=== PATIENT | male | born 1960 | race Caucasian/White ===

== ENCOUNTER 2018-01-07 19:42 | Emergency (ER) | payer OTHER ==
[2018-01-07] MEDS: ACETAMINOPHEN 325 MG TAB PO (21:39)
== END 2018-01-07 23:02 | disposition home or self-care (01) ==
LOC: FTE 19:42
DX: J06.9 Acute upper respiratory infection, unspecified (principal); I10 Essential (primary) hypertension
CPT/HCPCS: 71045; 87400; 87880; 99284-25

== ENCOUNTER 2018-03-30 11:08 | Observation (INO) | payer OTHER ==
[2018-03-30] MEDS: ASPIRIN 325 MG TAB PO (12:18)
[2018-03-30 12:23] LABS: ADD MAN DIFF? NO
[2018-03-30 12:26] LABS: WHITE BLOOD COUNT 8.6 10^3/ul (4.8-10.8)
[2018-03-30 12:26] LABS: BASOPHILS % 0.3 % (0.0-2.0); EOSINOPHILS # 0.2 10^3/ul (0.0-0.5); EOSINOPHILS % 2.7 % (0.0-7.0); HEMATOCRIT 41.2 % (42.0-52.0); HEMOGLOBIN 13.5 g/dl (14.0-18.0); LYMPHOCYTES # 1.6 10^3/ul (0.8-2.9); LYMPHOCYTES % 18.7 % (15.0-51.0); MEAN CORPUSCULAR HEMOGLOBIN 28.2 pg (29.0-33.0); MEAN CORPUSCULAR HGB CONC 32.8 g/dl (32.0-37.0); MEAN CORPUSCULAR VOLUME 86.2 fl (82.0-101.0); MEAN PLATELET VOLUME 11.2 fl (7.4-10.4); MONOCYTE # 0.6 10^3/ul (0.3-0.9); MONOCYTES % 6.5 % (0.0-11.0); NEUTROPHIL # 6.1 10^3/ul (1.6-7.5); NEUTROPHILS % 71.5 % (39.0-77.0); PLATELET COUNT 209 10^3/UL (140-415); RED BLOOD COUNT 4.78 10^6/ul (4.70-6.10); RED CELL DISTRIBUTION WIDTH 13.1 % (11.5-14.5)
[2018-03-30 12:48] LABS: ALANINE AMINOTRANSFERASE 61 IU/L (13-69); ALBUMIN 3.8 g/dl (3.3-4.9); ALBUMIN/GLOBULIN RATIO 1.26; ALKALINE PHOSPHATASE 67 IU/L (42-121); ANION GAP 11 (8-16); ASPARTATE AMINO TRANSFERASE 25 IU/L (15-46); BILIRUBIN,INDIRECT 0.3 mg/dl (0-1.1); BILIRUBIN,TOTAL 0.3 mg/dl (0.2-1.3); BLOOD UREA NITROGEN 21 mg/dl (7-20); CALCIUM 9.4 mg/dl (8.4-10.2); CARBON DIOXIDE 29 mmol/L (21-31); CHLORIDE 106 mmol/L (97-110); CREATININE 0.86 mg/dl (0.61-1.24); GLUCOSE 95 mg/dl (70-220); POTASSIUM 4.6 mmol/L (3.5-5.1); SODIUM 141 mmol/L (135-144); TOTAL PROTEIN 6.8 g/dl (6.1-8.1)
[2018-03-30 12:52] LABS: PROTIME 22.2 Sec (11.9-14.9); PT RATIO 1.7
[2018-03-30 12:53] LABS: PARTIAL THROMBOPLASTIN TIME 29.3 Sec (25.0-35.0)
[2018-03-30 13:00] LABS: B-TYPE NATRIURETIC PEPTIDE 125 PG/ML (0-125); TROPONIN-I < 0.012 ng/ml (0.000-0.120)
[2018-03-30] MEDS ORDERED: LORAZEPAM 0.5 MG TAB PO (15:30)
[2018-03-30] MEDS ORDERED: ONDANSETRON 4 MG INJ IV (15:30)
[2018-03-30] MEDS ORDERED: NACL 0.9% 3 ML SYG IV (15:30)
[2018-03-30] MEDS ORDERED: DOCUSATE SODIUM 100 MG CAP PO (15:30)
[2018-03-30] MEDS ORDERED: BISACODYL (EC) 5 MG TAB PO (15:30)
[2018-03-30] MEDS ORDERED: ACETAMINOPHEN 325 MG TAB PO (15:30)
[2018-03-30] MEDS ORDERED: MAGNESIUM HYDROXIDE 30ML CUP PO (15:30)
[2018-03-30 19:17] LABS: CREATINE KINASE 39 IU/L (23-200)
[2018-03-30 19:26] LABS: CK INDEX 0.6
[2018-03-30 19:41] LABS: CK-MB 0.25 ng/ml (0.0-2.4); TROPONIN-I < 0.012 ng/ml (0.000-0.120)
[2018-03-30] MEDS: METHOCARBAMOL 500 MG TAB PO (20:01)
[2018-03-30] MEDS: FISH OIL 1,000 MG CAP PO (20:01)
[2018-03-30] MEDS: ATORVASTATIN 40 MG TAB PO (20:01)
[2018-03-30] MEDS: HYDROCODONE/APAP (5/325) TAB PO (22:00)
[2018-03-31 00:19] LABS: CREATINE KINASE 37 IU/L (23-200)
[2018-03-31 00:32] LABS: CK INDEX 0.6
[2018-03-31 00:34] LABS: CK-MB 0.23 ng/ml (0.0-2.4); TROPONIN-I < 0.012 ng/ml (0.000-0.120)
[2018-03-31] MEDS: PANTOPRAZOLE (EC) 40 MG TAB PO (05:03)
[2018-03-31] MEDS: HYDROCODONE/APAP (5/325) TAB PO (05:03)
[2018-03-31] MEDS: LEVOTHYROXINE 100 MCG TAB PO (05:03)
[2018-03-31 05:39] LABS: ADD MAN DIFF? NO; BASOPHILS % 0.5 % (0.0-2.0); EOSINOPHILS # 0.3 10^3/ul (0.0-0.5); EOSINOPHILS % 2.9 % (0.0-7.0); HEMATOCRIT 41.1 % (42.0-52.0); HEMOGLOBIN 13.6 g/dl (14.0-18.0); LYMPHOCYTES # 1.7 10^3/ul (0.8-2.9); LYMPHOCYTES % 19.6 % (15.0-51.0); MEAN CORPUSCULAR HEMOGLOBIN 28.3 pg (29.0-33.0); MEAN CORPUSCULAR HGB CONC 33.1 g/dl (32.0-37.0); MEAN CORPUSCULAR VOLUME 85.4 fl (82.0-101.0); MEAN PLATELET VOLUME 11.5 fl (7.4-10.4); MONOCYTE # 0.6 10^3/ul (0.3-0.9); MONOCYTES % 7.2 % (0.0-11.0); NEUTROPHIL # 6.1 10^3/ul (1.6-7.5); NEUTROPHILS % 69.3 % (39.0-77.0); PLATELET COUNT 193 10^3/UL (140-415); RED BLOOD COUNT 4.81 10^6/ul (4.70-6.10); RED CELL DISTRIBUTION WIDTH 13.2 % (11.5-14.5)
[2018-03-31 05:39] LABS: WHITE BLOOD COUNT 8.7 10^3/ul (4.8-10.8)
[2018-03-31 06:09] LABS: ALANINE AMINOTRANSFERASE 51 IU/L (13-69); ALBUMIN 3.8 g/dl (3.3-4.9); ALBUMIN/GLOBULIN RATIO 1.11; ALKALINE PHOSPHATASE 71 IU/L (42-121); ANION GAP 14 (8-16); ASPARTATE AMINO TRANSFERASE 23 IU/L (15-46); BILIRUBIN,INDIRECT 0.7 mg/dl (0-1.1); BILIRUBIN,TOTAL 0.7 mg/dl (0.2-1.3); BLOOD UREA NITROGEN 20 mg/dl (7-20); CARBON DIOXIDE 29 mmol/L (21-31); CHLORIDE 105 mmol/L (97-110); CREATININE 0.93 mg/dl (0.61-1.24); GLUCOSE 97 mg/dl (70-220); MAGNESIUM 1.8 mg/dl (1.7-2.5); POTASSIUM 4.8 mmol/L (3.5-5.1); SODIUM 143 mmol/L (135-144); TOTAL PROTEIN 7.2 g/dl (6.1-8.1)
[2018-03-31] MEDS: FISH OIL 1,000 MG CAP PO (09:19)
[2018-03-31] MEDS: LISINOPRIL 5 MG TAB PO (09:19)
[2018-03-31] MEDS: METHOCARBAMOL 500 MG TAB PO ×2 (09:19→13:23)
[2018-03-31] MEDS: GABAPENTIN 300 MG CAP PO (09:19)
[2018-03-31] MEDS: ATENOLOL 50 MG TAB PO (09:20)
[2018-03-31] MEDS: ISOSORBIDE MONONITRATE(SR)30 MG TAB PO (09:20)
[2018-03-31] MEDS: CLOPIDOGREL 75 MG TAB PO (09:20)
[2018-03-31] MEDS: morphine 2 MG INJ IV ×2 (10:30→12:05)
== END 2018-03-31 14:13 | disposition home or self-care (01) ==
LOC: E/R 11:08 → MS3 13:59
DX: R07.2 Precordial pain (principal); I25.10 Atherosclerotic heart disease of native coronary artery without angina pectoris; Z95.5 Presence of coronary angioplasty implant and graft; Z95.1 Presence of aortocoronary bypass graft; I10 Essential (primary) hypertension; K21.9 Gastro-esophageal reflux disease without esophagitis; E03.9 Hypothyroidism, unspecified; E78.5 Hyperlipidemia, unspecified; E78.00 Pure hypercholesterolemia, unspecified; F32.9 Major depressive disorder, single episode, unspecified; Z87.891 Personal history of nicotine dependence; D68.2 Hereditary deficiency of other clotting factors; F41.9 Anxiety disorder, unspecified; Z79.02 Long term (current) use of antithrombotics/antiplatelets
CPT/HCPCS: 36415; 71045; 71100; 80053; 82550; 82553; 83735; 83880; 84484; 85025; 85610; 85730; 93005; 93306; 99285-25